=== PATIENT | female | born 1960 | race Caucasian/White ===

== ENCOUNTER 2024-10-18 12:22 | Emergency (ER) | payer OTHER ==
[2024-10-18 12:32] VITALS: BP 128/72; PULSE 96; RESP 18; TEMP 98.8; BMI 25.6
[2024-10-18] MEDS ORDERED: IBUPROFEN 600 MG TABLET (FP) PO ONE (14:28)
[2024-10-18] MEDS: IBUPROFEN 600 MG TABLET (FP) PO ONE (14:30)
== END 2024-10-18 15:16 | disposition home or self-care (01) ==
LOC: JER 12:22
DX: J10.1 Influenza due to other identified influenza virus with other respiratory manifestations (principal); R05.9 Cough, unspecified; R53.81 Other malaise; M79.18 Myalgia, other site; R50.9 Fever, unspecified; R07.81 Pleurodynia; Z20.822 Contact with and (suspected) exposure to COVID-19
CPT/HCPCS: 0241U-QW; 71046-TC-FY; 93005; 93010; 99285-25